=== PATIENT | male | born 1980 | race Caucasian/White ===

== ENCOUNTER 2020-01-16 03:27 | Emergency (ER) | payer OTHER ==
[~2020-01-16] VITALS: Ht 185.4 cm; Wt 136.1 kg
[~2020-01-16 03:27] MED LIST: ACCUNEB SO1.25 MG/1; ALBUTEROL INH; ALBUTEROL NEB; AMITRIPTYLINE H25 M3 PO; AZITHROMYCIN 6600 M1 PO; DARVOCET-N 1001 EAC1 PO; DARVOCET-N 1001 EACH PO; DOXEPIN 10 MG C10 MG PO; DOXYCYCLINE 10100 M1 PO; DOXYCYCLINE 10100 MG PO; DUONEB 2.5-0.5 M3 ML INH; FLEXERIL PO; HYDROCODONE-AP1 EAC6 PO; IBUPROFEN; MEDROLDOSEPACK PO; PREDNISONE 20 M20 M1 PO; PREDNISONE50 MG PO; PROAIR HFA8.5 GM IH; PROVENTIL HFA6.7 G1 INH; SINGULAIR 10 MG10 M1 PO; ZPAK PO
[2020-01-16 03:41] VITALS: BP 133/79
[2020-01-16] MEDS ORDERED: HYDROCODON-ACE1 EAC8 PO (03:54)
[2020-01-16] MEDS ORDERED: MEDROLDOSEPACK PO (03:54)
[2020-01-16] MEDS ORDERED: FLEXERIL PO (03:54)
== END 2020-01-16 04:05 | disposition home or self-care (01) ==
LOC: M.ERS 03:27
DX: M54.5 Low back pain (principal); J45.909 Unspecified asthma, uncomplicated; Z88.0 Allergy status to penicillin

== ENCOUNTER 2020-06-30 21:09 | Emergency (ER) | payer OTHER ==
[~2020-06-30] VITALS: Ht 185.4 cm; Wt 113.4 kg
[~2020-06-30 21:09] MED LIST changes: +HYDROCODON-ACE1 EAC8 PO
[2020-06-30] MEDS ORDERED: PROZAC 10 MG CA10 MG PO (21:23)
[2020-06-30] MEDS ORDERED: ZOFRAN ODT4 MG SUBLING (21:43)
[2020-06-30] MEDS ORDERED: NORCO 5-325 TA1 EAC2 PO (21:43)
[2020-06-30 22:15] VITALS: BP 140/65
== END 2020-06-30 22:16 | disposition home or self-care (01) ==
LOC: M.ERS 21:09
DX: S00.12XA Contusion of left eyelid and periocular area, initial encounter (principal); J45.909 Unspecified asthma, uncomplicated; M17.0 Bilateral primary osteoarthritis of knee; Z88.0 Allergy status to penicillin; W22.8XXA Striking against or struck by other objects, initial encounter; Y93.89 Activity, other specified; Y92.89 Other specified places as the place of occurrence of the external cause; Y99.8 Other external cause status

== ENCOUNTER 2021-02-14 19:11 | Emergency (ER) | payer OTHER ==
[~2021-02-14] VITALS: Ht 180.3 cm; Wt 155.6 kg
[~2021-02-14 19:11] MED LIST changes: +NORCO 5-325 TA1 EAC2 PO; +PROZAC 10 MG CA10 MG PO; +ZOFRAN ODT4 MG SUBLING
[2021-02-14 19:40] LABS: ABSOLUTE BASOPHILS 0.1 thou/uL (0.0-0.2); ABSOLUTE EOSINOPHILS 0.3 thou/uL (0.0-0.7); ABSOLUTE MONOCYTES 0.5 thou/uL (0.0-1.2); ABSOLUTE NEUTROPHILS 6.5 thou/uL (1.6-8.1); BASOPHILS 0.6 %; HEMATOCRIT 46.1 % (42.0-52.0); HEMOGLOBIN 15.2 gm/dL (14.0-18.0); LYMPHOCYTES 21.3 %; MCH 29.4 pg (26.0-34.0); MCHC 32.9 g/dL (28.0-37.0); MCV 89.2 fL (80.0-100.0); MONOCYTES 5.1 %; MPV 7.9 fl. (7.2-11.1); NUCLEATED RBCS 0 /100WBC; PLATELET COUNT* 210 thou/uL (150-400); RBC 5.17 mil/uL (4.50-6.00); RDW-CV 13.9 % (10.5-14.5); WBC 9.3 thou/uL (4.0-11.0)
[2021-02-14 19:47] LABS: CALCIUM 9.9 mg/dL (8.5-10.1); CREATININE 1.2 mg/dL (0.6-1.3); POTASSIUM 3.8 mmol/L (3.5-5.1)
[2021-02-14 19:51] LABS: ALBUMIN 3.8 g/dL (3.4-5.0); TOTAL BILIRUBIN 0.4 mg/dL (<0.1-1.0); TOTAL PROTEIN 7.9 g/dL (6.4-8.2)
[2021-02-14 19:54] LABS: ALCOHOL < 10 mg/dL (<10); SALICYLATE < 2.8 mg/dL (2.8-20.0)
[2021-02-14 19:57] LABS: ACETAMINOPHEN < 2 ug/mL (10-30)
[2021-02-14 19:57] LABS: URINE BILIRUBIN NEGATIVE (Negative); URINE BLOOD TRACE (Negative); URINE CLARITY CLEAR; URINE COLOR YELLOW; URINE GLUCOSE-RANDOM NEGATIVE (Negative); URINE KETONES NEGATIVE (Negative); URINE LEUKOCYTES-REFLEX NEGATIVE (Negative); URINE NITRITE-REFLEX NEGATIVE (Negative); URINE PROTEIN NEGATIVE (Negative); URINE SPECIFIC GRAVITY >= 1.030 (1.005-1.030); URINE UROBILINOGEN 0.2 E.U./dl (0.2-1.0)
[2021-02-14 20:05] LABS: AMP/METHAMP Negative (Negative); BARBITURATES Negative (Negative); BENZODIAZEPINES Negative (Negative); COCAINE Negative (Negative); METHADONE Negative (Negative); OPIATES Negative (Negative); PCP Negative (Negative); THC Negative (Negative)
[2021-02-14 22:40] VITALS: BP 156/90
== END 2021-02-14 22:46 | disposition home or self-care (01) ==
LOC: M.ERS 19:11
PROVIDERS: Emergency Medicine
DX: R45.4 Irritability and anger (principal); Z20.822 Contact with and (suspected) exposure to COVID-19; J45.909 Unspecified asthma, uncomplicated; M17.0 Bilateral primary osteoarthritis of knee; Z88.0 Allergy status to penicillin; Z79.899 Other long term (current) drug therapy